=== PATIENT | male | born 1990 | race Caucasian/White ===

== ENCOUNTER 2016-11-28 07:03 | Emergency (ER) | payer BC ==
[~2016-11-28] VITALS: Ht 172.7 cm; Wt 80.0 kg
[~2016-11-28 07:03] MED LIST: CEPH500C PO; IBUP600T44 PO; OXYC1TAB3 PO
[2016-11-28 07:12] VITALS: TEMP 36.3; Ht 172.7 cm; Wt 80.0 kg
[2016-11-28] MEDS ORDERED: SODIUM CHLORIDE 0.9% 1000ML 1,000 ML IV STA (07:19)
--- NOTE | 2016-11-28 07:35 | EMERGENCY ROOM VISIT NOTE ---
History First contact with patient: 07:06 Chief Complaint: ABDOMINAL PAIN Stated Complaint: STOMACH PAIN Nursing Triage Summary: Pt reports mid upper abd pain since 0500 today. pt reports "i made myself throw up before we came to try to feel better." History of Present Illness The patient is a 26 year old male who presents to the Emergency Room with complaints of abdominal pain. The patient states that his pain started around 4 :30 AM. He reports pain diffusely in the upper abdomen. He states that he vomited once because he made himself throw up because he felt nauseated. He states he also had diarrhea last night and today. He rates his discomfort currently a 2/10 and it is 8/10 at its worst. The pain waxes and wanes. The patient states he has been taking workout supplements recently. He denies any fevers. He denies any chest pain or trouble breathing. He denies any pain with deep inspiration. He denies any recent illness. He denies any urinary symptoms. He denies any recent travel. He denies any history of similar. The patient states that in the past he drank alcohol in excess but has not been drinking alcohol since September. Review of Systems A 10 system review of systems was completed with positives and pertinent negatives listed in the HPI. Past Medical/Surgical History Patient denies Social History Smoking Status: Never Smoker Housing Status: lives with family Current/Historical Medications Scheduled Omeprazole (Prilosec), 20 MG PO DAILY Allergies Coded Allergies: No Known Allergies (Unverified , 11/28/16) Physical Exam Vital Signs Date Time Temp Pulse Resp B/P Pulse Ox O2 Delivery O2 Flow Rate FiO2 11/28/16 11:19 62 20 136/65 99 11/28/16 10:31 62 11/28/16 09:46 69 18 135/66 100 Room Air 11/28/16 08:01 55 16 136/67 99 Room Air 11/28/16 07:30 60 11/28/16 07:12 36.3 78 18 151/58 95 Room Air Physical Exam VITALS: Vitals are noted on the nurse's note and reviewed by myself. Vital signs stable. The patient is afebrile. GENERAL: This is a 26-year-old male, in no acute distress, nondiaphoretic, well- developed well-nourished. SKIN: The skin was without rashes, erythema, edema, or bruising. There is no tenting of the skin. Capillary reflex less than 2 seconds. HEAD: Normocephalic atraumatic. EARS: The external ears are normal in appearance. EYES: Pupils equal round and reactive to light and accommodation. Conjunctivae without injection, sclerae without icterus. Extraocular movements intact. NOSE: Patent, turbinates without inflammation or discharge. MOUTH: Mucous membranes moist. Tonsils are not enlarged. Pharynx without erythema or exudate. Uvula midline. Airway patent. Tongue does not deviate. NECK: Supple without nuchal rigidity. No JVD. HEART: Regular rate and rhythm without murmurs gallops or rubs. LUNGS: Clear to auscultation bilaterally without wheezes, rales or rhonchi. No retractions or accessory muscle use. ABDOMEN: Positive bowel sounds x 4. Soft, without masses or organomegaly. Very mild diffuse tenderness over the upper abdomen. Negative Sharpe sign. MUSCULOSKELETAL: No muscle atrophy, erythema, or edema noted. Full range of motionin all extremities. Normal gait. Strength 5/5 throughout. NEURO: Patient was alert and oriented to person place and time. No focal neurological deficits. Medical Decision & Procedures ER Provider Diagnostic Interpretation: BILIARY ULTRASOUND CLINICAL HISTORY: Right upper quadrant abdominal pain COMPARISON STUDY: No previous studies for comparison. FINDINGS: The pancreas was nonvisualized. There is no right-sided hydronephrosis. No hepatic masses are visualized. There is no ductal dilatation. No gallstones were visualized. There is a suspected small amount of sludge within the gallbladder. The common bile duct measures 4 mm. IMPRESSION: 1. Nondiagnostic evaluation the pancreas 2. Small amount of sludge in the gallbladder. No shadowing calculi identified 3. No evidence of ductal dilatation. No hepatic lesions identified Laboratory Results 11/28/16 07:33 Red Blood Count 5.02, Mean Corpuscular Volume 85.3, Mean Corpuscular Hemoglobin 29.5, Mean Corpuscular Hemoglobin Concent 34.6, Mean Platelet Volume 10.7, Neutrophils (%) (Auto) 60.5, Lymphocytes (%) (Auto) 28.1, Monocytes (%) (Auto) 8.6, Eosinophils (%) (Auto) 1.9, Basophils (%) (Auto) 0.6, Neutrophils # (Auto) 3.82, Lymphocytes # (Auto) 1.77, Monocytes # (Auto) 0.54, Eosinophils # (Auto) 0.12, Basophils # (Auto) 0.04 11/28/16 07:33 Test 11/28/16 07:33 White Blood Count 6.31 K/uL (4.8-10.8) Red Blood Count 5.02 M/uL (4.7-6.1) Hemoglobin 14.8 g/dL (14.0-18.0) Hematocrit 42.8 % (42-52) Mean Corpuscular Volume 85.3 fL (80-100) Mean Corpuscular Hemoglobin 29.5 pg (25-34) Mean Corpuscular Hemoglobin Concent 34.6 g/dl (32-36) Platelet Count 243 K/uL (130-400) Mean Platelet Volume 10.7 fL (7.4-10.4) Neutrophils (%) (Auto) 60.5 % Lymphocytes (%) (Auto) 28.1 % Monocytes (%) (Auto) 8.6 % Eosinophils (%) (Auto) 1.9 % Basophils (%) (Auto) 0.6 % Neutrophils # (Auto) 3.82 K/uL (1.4-6.5) Lymphocytes # (Auto) 1.77 K/uL (1.2-3.4) Monocytes # (Auto) 0.54 K/uL (0.11-0.59) Eosinophils # (Auto) 0.12 K/uL (0-0.5) Basophils # (Auto) 0.04 K/uL (0-0.2) RDW Standard Deviation 40.5 fL (36.4-46.3) RDW Coefficient of Variation 13.0 % (11.5-14.5) Immature Granulocyte % (Auto) 0.3 % Immature Granulocyte # (Auto) 0.02 K/uL (0.00-0.02) Urine Color YELLOW Urine Appearance CLEAR (CLEAR) Urine pH 5.5 (4.5-7.5) Urine Specific [place] >= 1.030 (1.000-1.030) Urine Protein NEG (NEG) Urine Glucose (UA) NEG (NEG) Urine Ketones TRACE (NEG) Urine Occult Blood NEG (NEG) Urine Nitrite NEG (NEG) Urine Bilirubin NEG (NEG) Urine Urobilinogen NEG (NEG) Urine Leukocyte Esterase NEG (NEG) Anion Gap 8.0 mmol/L (3-11) Est Creatinine Clear Calc Drug Dose 97.6 ml/min Estimated GFR () 106.1 Estimated GFR (Non- 91.5 BUN/Creatinine Ratio 15.0 (10-20) Calcium Level 9.3 mg/dl (8.5-10.1) Total Bilirubin 0.4 mg/dl (0.2-1) Aspartate Amino Transf (AST/SGOT) 16 U/L (15-37) Alanine Aminotransferase (ALT/SGPT) 26 U/L (12-78) Alkaline Phosphatase 47 U/L (45-117) Total Creatine Kinase 314 U/L (39-308) Total Protein 7.5 gm/dl (6.4-8.2) Albumin 4.4 gm/dl (3.4-5.0) Globulin 3.1 gm/dl (2.5-4.0) Albumin/Globulin Ratio 1.4 (0.9-2) Lipase 127 U/L (73-393) Medications Administered Medications (Trade) Dose Ordered Sig/Jewel Route Start Time Stop Time Status Last Admin Dose Admin Sodium Chloride (Nss 1000ml) 1,000 ml @ 999 mls/hr Q1H1M STAT IV 11/28/16 07:19 11/28/16 08:19 DC 11/28/16 07:40 999 MLS/HR Al Hydroxide/Mg Hydroxide (Maalox Susp) 30 ml STK-MED ONCE .ROUTE 11/28/16 08:47 11/28/16 08:48 DC 11/28/16 08:42 30 ML Lidocaine HCl (Viscous Lidocaine 2% Soln) 20 ml STK-MED ONCE .ROUTE 11/28/16 08:47 11/28/16 08:48 DC 11/28/16 08:42 20 ML ED Course The patient was seen and examined. Previous visits were reviewed. The patient does not have a fever or leukocytosis. He does not have any significant electrolyte abnormalities. Lipase was not elevated. CPK was very minimally elevated. Urinalysis was negative. Gallbladder ultrasound showed sludge but no evidence for acute cholecystitis The patient was hydrated with normal saline 1 L He was given a GI cocktail which initially improved his symptoms significantly The patient presents to the emergency department with epigastric abdominal pain. The pain comes and goes. He does not have any lower abdominal pain or lower abdominal tenderness on examination. He does not have any chest pain or trouble breathing. This likely represents gastritis or peptic ulcer disease. The patient was advised to try a proton pump inhibitor and was given a prescription for Prilosec. He was advised that he could also try Zantac. The patient declined any pain medication while he was in the emergency department or for a prescription at home. The patient still seemed very anxious because he was still having discomfort. I again reassured him of this is likely gastritis and he would need to take the medication and he again declined pain medication. He still seemed anxious and therefore I asked Dr. Dubon to examine the patient. He agreed with the assessment and treatment plan. Medical Decision DIFFERENTIAL DIAGNOSIS: Hepatitis, cholecystitis, cholangitis, biliary colic, pancreatitis, pneumonia, subdiaphragmatic abscess, appendicitis, inguinal hernia , nephrolithiasis, inflammatory bowel disease, mesenteric adenitis, peptic ulcer disease, GERD, gastritis, pancreatitis, myocardial infarction, pericarditis, ruptured aortic aneurysm, appendicitis, gastroenteritis, bowel obstruction, splenic infarct, diverticulitis, mesenteric ischemia, metabolic, peritonitis, among others. Impression Primary Impression: Epigastric abdominal pain Additional Impression: Gastritis Departure Information Dispostion Home / Self-Care Condition GOOD Prescriptions Omeprazole (Prilosec) 20 Mg Capcr 20 MG PO DAILY for 14 Days, #14 CAP Prov: Ivet Ly PA-C 11/28/16 Referrals No Doctor, Assigned (PCP) Patient Instructions ED PUD Vs Gastritis, My [facility] Additional Instructions Prilosec once daily for 14 days You may also try Zantac once daily Contact a family doctor to schedule a follow-up appointment for further evaluation, management and referral for HIDA scan or gastroenterology evaluation Return with any worsening pain, fevers, lower abdominal pain, vomiting blood, chest pain, trouble breathing Problem Qualifiers Additional Impression:
[2016-11-28 07:47] LABS: BASO % 0.6 %; BASO ABS # 0.04 K/uL (0-0.2); COMPLETE YES; EOS % 1.9 %; HEMATOCRIT 42.8 % (42-52); IG% 0.3 %; LYMPH % 28.1 %; LYMPH ABS # 1.77 K/uL (1.2-3.4); MEAN CELL VOLUME 85.3 fL (80-100); MEAN CORPUSCULAR HEMOGLOBIN 29.5 pg (25-34); MEAN CORPUSCULAR HGB CONC 34.6 g/dl (32-36); MEAN PLATELET VOLUME 10.7 fL (7.4-10.4); MONO % 8.6 %; NEUT % 60.5 %; PLATELET COUNT 243 K/uL (130-400); RED BLOOD COUNT 5.02 M/uL (4.7-6.1); WHITE BLOOD COUNT 6.31 K/uL (4.8-10.8)
[2016-11-28 07:54] LABS: MANUAL MICROSCOPIC REQUIRED? NO; URINE APPEARANCE CLEAR (CLEAR); URINE BILIRUBIN NEG (NEG); URINE COLOR YELLOW; URINE NITRITE NEG (NEG); URINE PH 5.5 (4.5-7.5); URINE SPECIFIC GRAVITY >= 1.030 (1.000-1.030); UROBILINOGEN NEG (NEG)
[2016-11-28 07:58] LABS: REVIEW REQ? NO; ZZUR CULT IF INDIC CLEAN CATCH NO
[2016-11-28 08:08] LABS: CALCIUM 9.3 mg/dl (8.5-10.1); CREATININE 1.1 mg/dl (0.60-1.40); POTASSIUM 4.1 mmol/L (3.5-5.1)
[2016-11-28 08:11] LABS: ALB/GLOB RATIO 1.4 (0.9-2)
[2016-11-28] MEDS ORDERED: GI COCKTAIL PO STA (08:32)
[2016-11-28] MEDS ORDERED: ALUMINUM/MAGNESIUM SUSP 30 ML UDC ONE (08:47)
[2016-11-28] MEDS ORDERED: LIDOCAINE HCL 2% VISC SOLN 20 ML UDC ONE (08:47)
--- NOTE | 2016-11-28 09:58 | DIAGNOSTIC IMAGING REPORT ---
BILIARY ULTRASOUND CLINICAL HISTORY: Right upper quadrant abdominal pain COMPARISON STUDY: No previous studies for comparison. FINDINGS: The pancreas was nonvisualized. There is no right-sided hydronephrosis. No hepatic masses are visualized. There is no ductal dilatation. No gallstones were visualized. There is a suspected small amount of sludge within the gallbladder. The common bile duct measures 4 mm. IMPRESSION: 1. Nondiagnostic evaluation the pancreas 2. Small amount of sludge in the gallbladder. No shadowing calculi identified 3. No evidence of ductal dilatation. No hepatic lesions identified Electronically signed by: Alexys Fabian M.D. 11/28/2016 9:56 AM Dictated Date/Time: 11/28/2016 9:55 AM
[2016-11-28] MEDS ORDERED: OMEP20CA59 PO (10:40)
--- NOTE | 2016-11-28 11:15 | EMERGENCY ROOM VISIT NOTE ---
ED Visit Note First contact with patient: 07:06 26-year-old 26-year-old male with epigastric pain was fully evaluated by Jessy Ly PA-C. Please see her note. I also independently evaluated the patient. Patient most likely has gastritis versus peptic/gastric ulcer disease. The patient was placed on a PPI. The patient will require follow-up by family physician.
[2016-11-28 11:19] VITALS: BP 136/65; PULSE 62; O2SAT 99
== END 2016-11-28 11:21 | disposition home or self-care (01) ==
LOC: C.EDB 07:05
DX: R10.9 Unspecified abdominal pain (principal); K29.70 Gastritis, unspecified, without bleeding